=== PATIENT | male | born 1985 | race Caucasian/White ===

== ENCOUNTER 2016-10-26 10:48 | Emergency (ER) | payer MEDICAID ==
[~2016-10-26] VITALS: Wt 113.2 kg
[2016-10-26] MEDS ORDERED: DOXY100T20 PO (14:03)
--- NOTE | 2016-10-26 14:06 | ERD ---
ER Documentation Chief Complaint Date/Time DATE: 10/26/16 TIME: 14:05 Chief Complaint SENT HERE FOR EVALUATION OF SYPHILLIS. NEEDS ABX BEFORE DONATING PLASMA HPI This 31-year-old male presents for evaluation of a positive syphilis screening test while trying to donate plasma. He denies any history of genital ulcers, rashes, neurologic complaints, fevers, and has no symptoms at all. He denies penile discharge or known exposure to STDs. ROS All systems reviewed and are negative except as per history of present illness. Medications Home Meds Active Scripts Doxycycline Hyclate* (Doxycycline Hyclate*) 100 Mg Tablet., 100 MG PO BID for 14 Days, TAB Prov:LANA ALCARAZ MD 10/26/16 Allergies Allergies: Coded Allergies: No Known Allergy (Unverified , 10/26/16) PMhx/Soc Medical and Surgical Hx: pt denies Medical Hx, pt denies Surgical Hx Hx Alcohol Use: Yes Hx Substance Use: No Hx Tobacco Use: Yes Smoking Status: Current every day smoker Physical Exam Vitals Vital Signs Date Time Temp Pulse Resp B/P Pulse Ox O2 Delivery O2 Flow Rate FiO2 10/26/16 10:54 98.1 80 21 134/71 98 Physical Exam Const: [] Alert, [id number] per Head: Atraumatic Eyes: Normal Conjunctiva ENT: Normal External Ears, Nose and Mouth. Neck: Full range of motion..~ No meningismus. Resp: Clear to auscultation bilaterally Cardio: Regular rate and rhythm, no murmurs Abd: Soft, non tender, non distended. Normal bowel sounds Skin: No petechiae or rashes Back: No midline or flank tenderness Ext: No cyanosis, or edema Neur: Awake and alert Psych: Normal Mood and Affect Procedures/MDM Blood was drawn for RPR and FTA-ABS. Patient was discharged home with a prescription of doxycycline will be contacted pending positive test results to evaluate for true positive versus false positive. Patient does not have any signs or symptoms suggestive of STDs or syphilis so we will defer current treatment until confirmatory testing. The patient was stable with no new complaints during the ER course. Clinically, there is no current evidence to suggest meningitis, sepsis, acute abdomen, pneumonia, acute coronary syndrome, pulmonary embolism, or any other emergent condition appearing to require further evaluation or hospitalization. The patient should certainly return for any new or worsening symptoms per the aftercare instructions. They should otherwise follow-up with her primary care doctor for reevaluation this week. Departure Diagnosis: Primary Impression: Disorder of male genital organs Condition: Stable Patient Instructions: Syphilis, Older Adults and STDs Additional Instructions: Confirmatory test for syphilis back later this evening. Will call with instructions to continue antibiotics. LANA ALCARAZ MD Oct 26, 2016 14:06
== END 2016-10-26 14:09 | disposition home or self-care (01) ==
LOC: FTE 10:48
DX: N50.9 Disorder of male genital organs, unspecified (principal); F17.210 Nicotine dependence, cigarettes, uncomplicated
CPT/HCPCS: 86592; 87285; 99283